=== PATIENT | male | born 1955 | race Caucasian/White ===

== ENCOUNTER 2017-01-21 14:54 | Observation (INO) ==
[2017-01-21] MEDS ORDERED: ENOXAPARIN 100 MG/ML SYRINGE SUBCUT STA (15:22)
[2017-01-21] MEDS ORDERED: ASPIRIN 325 MG TABLET PO STA (15:22)
[2017-01-21 15:45] LABS: Albumin 3.8 G/DL (3.4-5.0); Bilirubin,Total 0.7 MG/DL (0.2-1.0); Calcium 8.7 MG/DL (8.5-10.1); Magnesium 2.1 MG/DL (1.8-2.4); Osmolality,Calculated 278.5 MOS/KG (273-304); Potassium 3.9 MMOL/L (3.5-5.1); Total Protein 6.6 G/DL (6.4-8.3)
[2017-01-21] MEDS ORDERED: ENOXAPARIN 100 MG/ML SYRINGE SUBCUT ONE (16:01)
[2017-01-21 16:07] LABS: Basophils % 0.5 % (0.0-0.8); Eosinophils # 0.2 10*3/uL (0.0-0.87); Eosinophils % 2.2 % (0.00-10.9); Hemoglobin 14.6 GM/DL (14.0-18.0); Immature Granulocytes % 0.3 %; Immature Granulocytes Absolute 0.02 #; Lymphocytes # 2.6 10*3/uL (1.4-4.0); Lymphocytes % 35.9 % (21.2-54.2); Mean Corpuscular HGB Conc 34.8 GM/DL (32-36); Mean Corpuscular Hemoglobin 27 PG (27-34); Mean Corpuscular Volume 78.1 FL (87-102); Mean Platelet Volume 9.5 FL (9.6-12.0); Monocytes # 0.6 10*3/uL (0.11-0.8); Monocytes % 8.7 % (1.7-12.7); Neutrophils # 3.8 10*3/uL (1.4-7.4); Neutrophils % 52.4 % (38.7-73.9); Platelet Count 215 T/CUMM (130-400); Red Blood Count 5.38 MC/CUMM (3.8-5.5); Red Cell Distribution Width 15.5 % (9.3-17.3); White Blood Count 7.3 T/CUMM (4-12)
[2017-01-21] MEDS ORDERED: NITROGLYCERIN SL 0.4 MG TABLET SL PRN (16:10)
[2017-01-21] MEDS ORDERED: ACETAMINOPHEN 325 MG TABLET PO ONE (16:44)
[2017-01-21] MEDS ORDERED: ACETAMINOPHEN 325 MG TABLET ONE (16:45)
[2017-01-21] MEDS: traMADol 50 MG TABLET PO SCH (19:34)
[2017-01-21] MEDS: GABAPENTIN 100 MG CAPSULE PO SCH (19:35)
[2017-01-21] MEDS ORDERED: PRAVASTATIN 20 MG TABLET PO SCH (21:00)
[2017-01-21] MEDS: ACETAMINOPHEN 325 MG TABLET PO SCH (21:29)
[2017-01-22] MEDS ORDERED: METOPROLOL SUCCINATE XL 100 MG TABLET PO SCH (09:00)
[2017-01-22] MEDS ORDERED: PANTOPRAZOLE 40 MG TABLET PO SCH (09:00)
[2017-01-22] MEDS ORDERED: LISINOPRIL 10 MG TABLET PO SCH (09:00)
[2017-01-22] MEDS ORDERED: ASPIRIN EC 325 MG TABLET PO SCH (09:00)
[2017-01-22] MEDS: traMADol 50 MG TABLET PO SCH (09:05)
[2017-01-22] MEDS: GABAPENTIN 100 MG CAPSULE PO SCH (09:06)
[2017-01-22] MEDS: ACETAMINOPHEN 325 MG TABLET PO SCH (09:07)
[2017-01-22 13:28] VITALS: BP 111/78
== END 2017-01-22 13:18 | disposition home or self-care (01) ==
LOC: EDUNIT# → EDBD → N.ED 14:54 → N.EDINP 14:54 → N.TELES 18:39
PROVIDERS: ADMIT Internal Medicine Cardiovascular Disease; ATTEND Internal Medicine Cardiovascular Disease